=== PATIENT | male | born 1960 | race Caucasian/White ===

== ENCOUNTER → 2017-06-06 | Outpatient (CLI) | payer OTHER ==
[~2017-06-06] MED LIST: NO HOME MEDICATIONS; VARE1 PO
--- NOTE | 2017-06-06 08:51 | RADRPT ---
EXAM DATE/TIME: 06/06/2017 08:33 [place] COMPARISON: No previous studies available for comparison. INDICATIONS : Evaluate for pneumonia, pneumothorax or communicable disease. Pre op for anorectoplasty on 06-13-17 MEDICAL HISTORY : None. SURGICAL HISTORY : None. ENCOUNTER: Initial ACUITY: 1 day PAIN SCORE: 0/10 LOCATION: Bilateral chest FINDINGS: PA and lateral views of the chest demonstrate the lungs to be symmetrically aerated without evidence of mass, infiltrate or effusion. The cardiomediastinal contours are unremarkable. Osseous structure s are intact. CONCLUSION: No acute disease. Alexey Davis MD FACR on June 06, 2017 at 8:47 Board Certified Radiologist. This report was verified electronically.
[2017-06-06 09:24] LABS: AUTOMATED NEUTROPHIL # 3.6 TH/MM3 (1.8-7.7); BASOPHIL % 0.5 % (0.0-2.0); EOSINOPHIL # 0.3 TH/MM3 (0-0.4); EOSINOPHIL % 4.6 % (0.0-4.0); HEMATOCRIT 44.6 % (39.0-51.0); HEMOGLOBIN 15.5 GM/DL (13.0-17.0); LYMPH % 30.2 % (9.0-44.0); LYMPHOCYTE # 1.9 TH/MM3 (1.0-4.8); MEAN CELL VOLUME 88.7 FL (80.0-100.0); MEAN CORPUSCULAR HEMOGLOBIN 30.8 PG (27.0-34.0); MEAN CORPUSCULAR HGB CONC 34.7 % (32.0-36.0); MEAN PLATELET VOLUME 9.3 FL (7.0-11.0); MONO % 7.9 % (0.0-8.0); MONOCYTE # 0.5 TH/MM3 (0-0.9); NEUT % 56.8 % (16.0-70.0); PLATELET COUNT 168 TH/MM3 (150-450); RED BLOOD COUNT 5.02 MIL/MM3 (4.50-5.90); RED CELL DISTRIBUTION WIDTH 13.5 % (11.6-17.2); WHITE BLOOD COUNT 6.3 TH/MM3 (4.0-11.0)
[2017-06-06 09:30] LABS: BILIRUBIN, URINE NEG (NEG); BLOOD, URINE TRACE (NEG); GLUCOSE,URINE NEG (NEG); KETONE, URINE NEG (NEG); MUCUS URINE FEW /lpf (OCC); NITRITE,URINE NEG (NEG); PH, URINE 5.5 (5.0-8.5); URINE COLOR YELLOW (YELLW/STRAW); URINE LEUKOCYTE ESTERASE NEG (NEG)
[2017-06-06 09:49] LABS: ALBUMIN 4.1 GM/DL (3.4-5.0); AST (GOT) 19 U/L (15-37); BICARBONATE 28.6 MEQ/L (21.0-32.0); BLOOD UREA NITROGEN 15 MG/DL (7-18); CHLORIDE 105 MEQ/L (98-107); CREATININE 0.97 MG/DL (0.60-1.30); GLOMERULAR FILTRATION RATE 79 ML/MIN (>89); GLUCOSE,FASTING 121 MG/DL (74-99); SODIUM (NA) 139 MEQ/L (136-145)
[2017-06-06 09:51] LABS: ALT (GPT) 29 U/L (12-78)
[2017-06-06 09:53] LABS: ALKALINE PHOSPHATASE 52 U/L (45-117); TOTAL BILIRUBIN ADULT 0.5 MG/DL (0.2-1.0); TOTAL PROTEIN 7.5 GM/DL (6.4-8.2)
--- NOTE | 2017-06-06 21:04 | EKG ---
Date Performed: 06/06/2017 Time Performed: 07:35:13 PTAGE: 57 years EKG: Sinus rhythm SEPTAL MYOCARDIAL INFARCTION, PROBABLY OLD ABNORMAL ECG PREVIOUS TRACING : 04/10/2014 13.17 Since the previous tracing, no significant change noted DOCTOR: Naun Vines Interpretating Date/Time 06/06/2017 21:02:44
== END ==
LOC: CPRE 08:06
PROVIDERS: ATTEND Colon & Rectal Surgery
DX: Z01.812 Encounter for preprocedural laboratory examination (principal); Z01.811 Encounter for preprocedural respiratory examination; Z01.810 Encounter for preprocedural cardiovascular examination; K62.6 Ulcer of anus and rectum
CPT/HCPCS: 36415; 71046; 80053; 81001; 85025; 93005

== ENCOUNTER → 2017-06-13 | Day surgery (SDC) | payer OTHER ==
[~2017-06-13] VITALS: Ht 180.3 cm; Wt 93.5 kg
[~2017-06-13] MED LIST changes: +CHLORHEXIDINE GLUCONATE 2 % 1 PACK (2 CLOTHS) TOPICAL PRN; +DEXAMETHASONE SOD PHOS 4 MG/ML VIAL IV ONE; +DO NOT ADM ANY ANTICOAGULANT DRUGS PRN; +GLYCOPYRROLATE 1 MG/5 ML SYRINGE IV PUSH ONE; +LACTATED RINGER'S 1000 ML IV PRN; +LIDOCAINE 0.5%/EPINEPHrine 1:200,000 SOLN 50 ML VIAL ONE; +LIDOCAINE 1%/EPINEPHrine 1:100,000 SOLN 30 ML VIAL ONE; +LIDOCAINE 1%/EPINEPHrine 1:100,000 SOLN 50 ML VIAL ONE; +LIDOCAINE HCL 1% PF 5 ML SYRINGE OTHER ONE; +METOPROLOL TARTRATE 25 MG TAB PO PRN; +MIDAZOLAM HCL 2 MG/2 ML VIAL ONE; +MORPHINE SULFATE 4 MG/ML INJ IV PRN; +NEOSTIGMINE 5 MG/5 ML SYRINGE IV PUSH ONE; -NO HOME MEDICATIONS; +ONDANSETRON HCL 4 MG/2 ML VIAL IV ONE; +ONDANSETRON HCL 4 MG/2 ML VIAL IV PUSH PRN; +PHENYLEPH/NS 1000 MCG/10 ML SYR IV ONE; +POVIDONE IODINE 5% (ANTISEPSIS KIT) 4 APPLICATIONS EACH NARE PRN; +PROPOFOL 200 MG/20 ML AMP IV ONE; +ROCURONIUM INJ 50 MG/5 ML SYRINGE IV PUSH ONE; +SILVER SULFADIAZINE/LIDOCAINE CREAM 60 GM JAR TOPICAL ONE; +SODIUM CHLORID 0.9% 500 ML IV PRN; +oxyCODONE/ACETAMINOPHEN 10 MG/325 MG TAB PO PRN
--- NOTE | 2017-06-13 13:54 | PD.HP.UP ---
H&P Update Note The Pre-Admit History and Physical Examination regarding the above named patient was reviewed (including, but not limited to, vital signs, heart, lungs, co-morbid conditions), and upon re-examination it is noted that: the patient's condition has not significantly changed since the last examination. Delmer Tovar MD Jun 13, 2017 13:54
[2017-06-13 16:19] VITALS: BP 133/81; PULSE 56; RESP 14; TEMP 97.5; O2SAT 98
--- NOTE | 2017-06-15 18:46 | MR ---
cc: Delmer Tovar MD, Andrew H MD DATE: 06/13/2017 POSTOPERATIVE DIAGNOSIS: 1, Anal lesion, possible condyloma, possible HPV. PROCEDURE: 1. Exam under anesthesia with biopsy of anal lesion. 2. Excision of anal lesion with cauterization of anal skin. 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 SURGEON: Dr. Delmer Tovar TIME STAMP ASSEMBLER: Dr. Jorge Hunt. PROCEDURE IN DETAIL: The patient was placed in the supine position. After adequate general anesthesia, he was turned and placed in the prone jackknife position. His buttocks were taped apart, prepped with Betadine solution and draped in the usual sterile fashion. Initially local anesthesia was obtained by injection of 1% Xylocaine/0.5% Marcaine with epinephrine. Canal was dilated and the half chandra retractor inserted. Examination revealed an unusual pink rash extending about 3/4 of the circumference of the anal canal, which was thick and somewhat inflamed in appearance. An unusual dermatitis or lesion extending about 3/4 of the circumference of the anal canal up to around the dentate line. Several large sections of this lesion were taken for frozen section and the pathologist returned a report showing tissue for high grade dysplasia consistent with carcinoma in situ, no invasion was identified. Additional pieces of the lesion were then excised with electrocautery and sharp dissection down to the smooth muscle. There were some areas where some of the partial thickness of the skin was taken. Hemostasis was achieved with electrocautery. Any additional visible areas of the lesion were then destroyed with electrocautery. At completion, there did appear to be adequate hemostasis. A Surgicel dressing was placed in the anal canal and a large fluff dressing placed externally. The patient tolerated the procedure quite well, was brought to the recovery room in stable condition. The sponge and needle counts were correct at the end of the procedure. Delmer Tovar MD [facility] , 06:29 PM , 06:45 PM
== END | disposition home or self-care (01) ==
LOC: HSDC 12:24
PROVIDERS: ATTEND Colon & Rectal Surgery
DX: D04.5 Carcinoma in situ of skin of trunk (principal); K62.9 Disease of anus and rectum, unspecified; K64.3 Fourth degree hemorrhoids; K62.6 Ulcer of anus and rectum; I10 Essential (primary) hypertension
CPT/HCPCS: 00300; 11603; 88305; 88331; J1100; J2250; J2370; J2405; J2710; J3010; J7120; 88304